=== PATIENT | female | born 1960 | race African-American/Black ===

== ENCOUNTER 2016-09-19 14:10 | Emergency (ER) | payer MEDICARE, OTHER ==
[~2016-09-19] VITALS: Ht 170.2 cm; Wt 96.6 kg
[~2016-09-19 14:10] MED LIST: AMLO10TA2 PO; AMLO10TA4; ATOR40TA PO; CARV3.12 PO; CLOP75TA27 PO; FENO145T PO; FERR325T58 PO; GLIM4TAB2 PO; HYDR12.58 PO; LEVE500T56 PO; LISI20TA PO; LORA10TA55 PO; METF500T4 PO; OXYC1TAB9 PO; SOLI5TAB PO; TRAM50TA PO; TRIA15CR3 TP
--- NOTE | 2016-09-19 14:47 | RAD ---
EXAM: Chest 2 views. HISTORY: Cough, shortness of breath, weakness. COMPARISON: 03/09/2016. FINDINGS: Frontal and lateral views of the chest are obtained. There are no confluent infiltrates. There is no pneumothorax or pleural effusion. The heart is not enlarged. A large retrocardiac opacity is consistent with a large hiatal hernia seen on prior studies. There is mild adjacent atelectasis. There are atherosclerotic calcifications of the aorta. Cholecystectomy clips are noted. IMPRESSION: 1. Large hiatal hernia. No confluent infiltrates.
[2016-09-19 15:15] VITALS: BP 121/68
[2016-09-19] MEDS ORDERED: AZIT250T PO (15:15)
[2016-09-19] MEDS ORDERED: GUAI-56 PO (15:15)
[2016-09-19] MEDS ORDERED: PROAIR RESPICL90 MCG IH (15:15)
[2016-09-19] MEDS ORDERED: BENZ100C PO (15:15)
--- NOTE | 2016-09-19 15:15 | PHYS DOC ---
Past Medical History Past Medical History: COPD, CVA, Diabetes-Type II, Hypertension Additional Past Medical Histor: Sickle cell trait, hiatal hernia Past Surgical History: Cholecystectomy, Hysterectomy, Tubal ligation Additional Past Surgical Histo: carotid endarterectomy Alcohol Use: Occasionally Drug Use: None Adult General Chief Complaint Chief Complaint: COUGH HPI HPI Patient is a 55 year old female with history of hypertension diabetes and COPD who presents today with a productive cough with yellow sputum for the last 4 days. Patient denies any fever. Patient states she is a smoker Review of Systems Review of Systems Constitutional: Denies fever or chills [] Eyes: Denies change in visual acuity, redness, or eye pain [] HENT: Denies nasal congestion or sore throat [] Respiratory: cough Cardiovascular: No additional information not addressed in HPI [] GI: Denies abdominal pain, nausea, vomiting, bloody stools or diarrhea [] : Denies dysuria or hematuria [] Musculoskeletal: Denies back pain or joint pain [] Integument: Denies rash or skin lesions [] Neurologic: Denies headache, focal weakness or sensory changes [] Endocrine: Denies polyuria or polydipsia [] Allergies Allergies Allergies Coded Allergies Type Severity Reaction Last Updated Verified aspirin Allergy Intermediate Itching 03/09/16 Yes meloxicam Allergy Intermediate 03/09/16 Yes strawberry Allergy Intermediate Itching 03/09/16 Yes Physical Exam Physical Exam Constitutional: Well developed, well nourished, no acute distress, non-toxic appearance. [] HENT: Normocephalic, atraumatic, bilateral external ears normal, oropharynx moist, no oral exudates, nose normal. [] Eyes: PERRLA, EOMI, conjunctiva normal, no discharge. [] Neck: Normal range of motion, no tenderness, supple, no stridor. [] Cardiovascular:Heart rate regular rhythm, no murmur [] Lungs & Thorax: Bilateral breath sounds clear to auscultation [] Abdomen: Bowel sounds normal, soft, no tenderness, no masses, no pulsatile masses. [] Skin: Warm, dry, no erythema, no rash. [] Back: No tenderness, no CVA tenderness. [] Extremities: No tenderness, no cyanosis, no clubbing, ROM intact, no edema. [] Neurologic: Alert and oriented X 3, normal motor function, normal sensory function, no focal deficits noted. [] Psychologic: Affect normal, judgement normal, mood normal. [] Current Patient Data Vital Signs Vital Signs Date Time Temp Pulse Resp B/P Pulse Ox O2 Delivery O2 Flow Rate FiO2 09/19/16 14:23 99.0 97 18 95 Room Air 99.0 EKG EKG [] Radiology/Procedures Radiology/Procedures [] Course & Med Decision Making Course & Med Decision Making Pertinent Labs and Imaging studies reviewed. (See chart for details) Patient is in the ED with symptoms consistent of bronchitis. She is encouraged to consider smoking cessation. Discharged with zithromax, albuterol inhaler Tessalon Perles and Tussionex. Follow-up with PCP in one week. Dragon Disclaimer Dragon Disclaimer This electronic medical record was generated, in whole or in part, using a voice recognition dictation system. Departure Departure Impression: Primary Impression: Acute bronchitis Additional Impression: Smoking addiction Disposition: HOME, SELF-CARE Condition: STABLE Referrals: Adriano JOVEL MD (PCP) Follow-up with your doctor in the next 7 days Patient Instructions: Acute Bronchitis, [id number] Additional Instructions: You were seen for acute bronchitis. Please complete your antibiotics, consider smoking cessation. Use the rest of the medications as ordered. Follow-up with your doctor next wee. Come back to the ED at any point symptoms worsen. Scripts Guaifenesin/Codeine Phosphate (Guiatuss Ac Syrup)120 Ml [id number] Ml PO Q6-8HRS PRN COUGH #90 LIQUID Prov:YOUNG BROOKE [employer] 09/19/16 Benzonatate (Tessalon Perle)100 Mg Capsule1 Cap PO TID #30 CAP Prov:YOUNG BROOKE [employer] 09/19/16 Albuterol Sulfate (Proair Respiclick)90 Mcg Aer.pow.ba1 Puff IH PRN Q6HRS PRN SHORTNESS OF BREATH #1 INHALER Prov:YOUNG BROOKE APRN 09/19/16 Azithromycin (Zithromax)250 Mg Tablet1 Pkg PO UD #1 PKG Prov:YOUNG BROOKE [employer] 09/19/16 Problem Qualifiers Primary Impression: Acute bronchitis Bronchitis organism: unspecified organism Qualified Code: J20.9 - Acute bronchitis, unspecified YOUNG BROOKE [employer] Sep 19, 2016 15:15
== END 2016-09-19 15:21 | disposition home or self-care (01) ==
LOC: ER 14:10
DX: J20.9 Acute bronchitis, unspecified (principal); F17.200 Nicotine dependence, unspecified, uncomplicated; J44.9 Chronic obstructive pulmonary disease, unspecified; E11.9 Type 2 diabetes mellitus without complications; I10 Essential (primary) hypertension; Z86.73 Personal history of transient ischemic attack (TIA), and cerebral infarction without residual deficits; Z86.2 Personal history of diseases of the blood and blood-forming organs and certain disorders involving the immune mechanism; Z90.710 Acquired absence of both cervix and uterus; Z90.49 Acquired absence of other specified parts of digestive tract; Z98.51 Tubal ligation status; Z88.6 Allergy status to analgesic agent; Z91.018 Allergy to other foods; Z88.8 Allergy status to other drugs, medicaments and biological substances
CPT/HCPCS: 71020; 99284

== ENCOUNTER 2017-02-10 13:59 | Emergency (ER) | payer MEDICARE, OTHER ==
[~2017-02-10] VITALS: Ht 170.2 cm; Wt 97.5 kg
[~2017-02-10 13:59] MED LIST changes: +AZIT250T PO; +BENZ100C PO; -CLOP75TA27 PO; +CLOP75TA57 PO; +GUAI-56 PO; +PROAIR RESPICL90 MCG IH; -SOLI5TAB PO; +SOLI5TAB2 PO
[2017-02-10 14:10] VITALS: BP 140/74
[2017-02-10] MEDS ORDERED: HYDROcodone/APAP 5/325MG 1 TAB TABLET PO ONE (14:45)
--- NOTE | 2017-02-10 14:49 | PHYS DOC ---
Past Medical History Past Medical History: COPD, CVA, Diabetes-Type II, Hypertension Additional Past Medical Histor: Sickle cell trait, hiatal hernia Past Surgical History: Cholecystectomy, Hysterectomy, Tubal ligation Additional Past Surgical Histo: carotid endarterectomy, left wrist, carpal tunnel Alcohol Use: Occasionally Drug Use: None Adult General Chief Complaint Chief Complaint: PAIN CONTROL [facility] HPI Patient is a 56 year old female presents to the emergency department stating that she had surgery on the by Dr. Kevin Natarajan. Patient states that she was provided with oxycodone 5 mg. She states that she has out of her prescription. She did have oxycodone filled on 02/05 with 40 tablets that should've lasted her for 6 days however she has one day early of getting her medications completed. His also noted that she had Dilaudid 8 mg tablets filled on 02/08 and a total of 40 to last her for 7 days in which she should still have Dilaudid at home. Patient states that she's been having increased pain and discomfort in her left arm where she had surgery. She denies any numbness or tingling into the hands. She denies any drainage or discharge coming from the surgical site. Patient states that her family member changes the dressing. She denies any fever, chills or any nausea or vomiting. Review of Systems Review of Systems Constitutional: Denies fever or chills [] Eyes: Denies change in visual acuity, redness, or eye pain [] HENT: Denies nasal congestion or sore throat [] Respiratory: Denies cough or shortness of breath [] Cardiovascular: No additional information not addressed in HPI [] GI: Denies abdominal pain, nausea, vomiting, bloody stools or diarrhea [] : Denies dysuria or hematuria [] Musculoskeletal: Denies back pain. Complaint of left forearm pain and discomfort from her surgical site. Integument: Denies rash or skin lesions [] Neurologic: Denies headache, focal weakness or sensory changes [] Endocrine: Denies polyuria or polydipsia [] Current Medications Current Medications Current Medications Medications (Trade) Dose Ordered Sig/Chuck Start Time Stop Time Status Last Admin Dose Admin Acetaminophen/ Hydrocodone Bitart (Lortab 5/325) 2 tab 1X ONCE 02/10/17 14:45 02/10/17 14:46 UNV Allergies Allergies Allergies Coded Allergies Type Severity Reaction Last Updated Verified aspirin Allergy Intermediate Itching 03/09/16 Yes meloxicam Allergy Intermediate 03/09/16 Yes strawberry Allergy Intermediate Itching 03/09/16 Yes Physical Exam Physical Exam Constitutional: Well developed, well nourished, no acute distress, non-toxic appearance. [] HENT: Normocephalic, atraumatic, bilateral external ears normal, oropharynx moist, no oral exudates, nose normal. [] Eyes: PERRLA, EOMI, conjunctiva normal, no discharge. [] Neck: Normal range of motion, no tenderness, supple, no stridor. [] Cardiovascular:Heart rate regular rhythm, no murmur [] Lungs & Thorax: Bilateral breath sounds clear to auscultation [] Skin: Warm, dry, no erythema, no rash. Patient with a surgical incision on the left medial aspect of the distal forearm. This area appears to be without redness warmth or drainage or any tenderness. Sutures appear to be intact. Edges appear to be approximated well. Back: No tenderness Extremities: No tenderness, no cyanosis, no clubbing, ROM intact, no edema. Patient was noted to have a splint in place. Peripheral pulses 2+ cap refill brisk is less than 2 seconds. Patient has good sensation to the fingers and is able to move the fingers without difficulty. Neurologic: Alert and oriented X 3, normal motor function, normal sensory function, no focal deficits noted. [] Psychologic: Affect normal, judgement normal, mood normal. [] Current Patient Data Vital Signs Vital Signs Date Time Temp Pulse Resp B/P (MAP) Pulse Ox O2 Delivery O2 Flow Rate FiO2 02/10/17 14:10 98.8 98 16 97 Room Air 98.8 EKG EKG [] Radiology/Procedures Radiology/Procedures [] Course & Med Decision Making Course & Med Decision Making Pertinent Labs and Imaging studies reviewed. (See chart for details) Patient will be provided with hydrocodone here in the emergency department. She' ll be provided with 2 tablets. She will not be provided with a prescription to take at home as she has Dilaudid at home. She did have a Dilaudid prescription filled on 02/08 with 40 tablets to last for 7 days. This should suffice her enough to get through until Sunday to see her surgeon. Patient will be discharged home in stable condition signs symptoms to return back to emergency department as been provided. Recommended patient use ice packs on 20 minutes off 20 minutes several times a day. Elevation as much as possible. Patient agrees with discharge instructions, treatment regimens and follow-up recommendations. [] Dragon Disclaimer Dragon Disclaimer This electronic medical record was generated, in whole or in part, using a voice recognition dictation system. Departure Departure Impression: Primary Impression: Inadequate pain control Disposition: HOME, SELF-CARE Condition: STABLE Referrals: Adriano JOVEL MD (PCP) Patient Instructions: Sutured Wound Care, Rbni-it-Vnat, Wrist Pain, Easy-to- Read Additional Instructions: Continue to wear splint as prescribed by your surgeon. Continue the medication regimen of your primary care physician or your surgeon has provided you. Ice packs on 20 minutes off 20 minutes several times a day. Elevation as much as possible. Follow-up with your surgeon on Sunday in which she state you have an appointment. Return to the emergency department for signs symptoms of become worse. TANNER DUCKWORTH APRN Feb 10, 2017 14:49
== END 2017-02-10 15:15 | disposition home or self-care (01) ==
LOC: ER 13:59
DX: G89.18 Other acute postprocedural pain (principal); E11.9 Type 2 diabetes mellitus without complications; J44.9 Chronic obstructive pulmonary disease, unspecified; I10 Essential (primary) hypertension; Z86.73 Personal history of transient ischemic attack (TIA), and cerebral infarction without residual deficits; Z98.890 Other specified postprocedural states; Z88.6 Allergy status to analgesic agent; Z91.018 Allergy to other foods; Z91.048 Other nonmedicinal substance allergy status; G56.00 Carpal tunnel syndrome, unspecified upper limb
CPT/HCPCS: 99282

== ENCOUNTER → 2018-02-26 | Outpatient (CLI) | payer MEDICARE, OTHER ==
[2018-01-23 12:57] VITALS: BP 187/81
[~2018-02-26] MED LIST changes: -METF500T4 PO; +METF500T5 PO; +METH-37 PO; +METH4TAB2 PO; +OXYC-411 PO; -OXYC1TAB9 PO; +TRAM-48 PO
--- NOTE | 2018-02-26 17:47 | RAD ---
EXAM: Metastatic Survey DATE: 02/26/2018 12:00 AM CLINICAL INDICATION: MGUS,monocional gammopathy of unknown signifance, pt extremely tired x 2 years COMPARISON: Chest radiograph 09/19/2016 TECHNIQUE: Survey images of the skull, axial skeleton, pelvis and appendicular skeleton submitted. PA view of the chest also submitted. FINDINGS: AP and lateral views of the skull are negative for focal lytic or blastic abnormality. Negative for acute fracture or sutural diastasis. Survey of the axial skeletal shows mild degenerative changes of the cervical and lumbar spine. Negative malalignment. Negative focal lytic or blastic abnormality. Negative compression fracture. Preserved bone density at the axial skeleton. AP view of the pelvis is negative for focal lytic or blastic abnormality Preserved bone density at the pelvis. Negative pathologic fracture. Hip joint spaces are preserved bilaterally. Survey of the appendicular skeleton is negative for focal lytic or blastic abnormality, or endosteal scalloping. Negative pathologic fracture. Bone density is preserved throughout. Degenerative change is seen at the knees. PA chest exam is negative for consolidation or edema. Cardiac silhouette size is mildly enlarged. Negative expansile rib lesion. Negative lytic or blastic abnormality of the visualized marginal bony skeleton. IMPRESSION: 1. Negative metastatic survey for findings of skeletal involvement with multiple myeloma. No suspicious lytic lesion is identified. Electronically signed by: Colten Nelson MD (02/26/2018 5:43 PM) [facility]
== END | disposition home or self-care (01) ==
LOC: RAD 12:09
PROVIDERS: ATTEND Internal Medicine Hematology & Oncology
DX: D47.2 Monoclonal gammopathy (principal); I12.9 Hypertensive chronic kidney disease with stage 1 through stage 4 chronic kidney disease, or unspecified chronic kidney disease; E11.22 Type 2 diabetes mellitus with diabetic chronic kidney disease; N18.9 Chronic kidney disease, unspecified; E78.00 Pure hypercholesterolemia, unspecified; M19.90 Unspecified osteoarthritis, unspecified site; J44.9 Chronic obstructive pulmonary disease, unspecified; K21.9 Gastro-esophageal reflux disease without esophagitis; Z87.891 Personal history of nicotine dependence
CPT/HCPCS: 77075

== ENCOUNTER → 2018-05-20 | Outpatient (CLI) | payer MEDICARE, OTHER ==
[2018-01-23 12:57] VITALS: BP 187/81
[~2018-05-20] MED LIST changes: -AMLO10TA2 PO; +AMLO10TA6 PO; +METF500T16 PO; -METF500T5 PO
--- NOTE | 2018-05-20 16:30 | RAD ---
DATE: 05/20/2018 EXAM: MAMMO BORA SCREENING BILATERAL HISTORY: Routine screening COMPARISON: 04/03/2012 This study was interpreted with the benefit of Computerized Aided Detection (CAD). Breast Density: FATTY The breast parenchyma is primarily fatty replaced. Breast parenchyma level density A. FINDINGS: 2-D and 3-D tomosynthesis imaging was performed in CC and MLO projections. No new or enlarging breast densities seen within either breast. There are scattered benign type calcifications. No suspicious microcalcifications have developed. There is a new focal area of skin thickening present along the inferomedial aspect of the left breast posteriorly. No underlying mass within the breast is seen. IMPRESSION: 1. Inferiomedial skin thickening on the left without evidence of an underlying breast mass. Skin related infection, inflammation or even malignancy are possibilities. Clinical correlation is suggested. 2. In regards to the breasts, this study is considered to be BI-RADS 2-benign findings, with follow-up mammography in one year suggested. The skin finding should be dealt with on clinical grounds. PQRS compliance statement: Patient information was entered into a reminder system with a target due date for the next mammogram. Mammography is a sensitive method for finding small breast cancers, but it does not detect them all and is not a substitute for careful clinical examination. A negative mammogram does not negate a clinically suspicious finding and should not result in delay in biopsying a clinically suspicious abnormality. "Our facility is accredited by the [employer] Mammography Program."
== END | disposition home or self-care (01) ==
LOC: MAMMO 14:24
PROVIDERS: ATTEND Family Medicine
DX: Z12.31 Encounter for screening mammogram for malignant neoplasm of breast (principal)
CPT/HCPCS: 77063; 77067

== ENCOUNTER → 2018-06-13 | Outpatient (CLI) | payer OTHER ==
[2018-01-23 12:57] VITALS: BP 187/81
--- NOTE | 2018-06-18 17:08 | PATHOLOGY ---
[facility] Accession Number: [id number] . 01 Material submitted: . PLANTAR, R FOOT . 01 Clinical history: . Evaluation punch biopsy skin lesion for malignancy . 02 Diagnosis: Skin, right plantar foot punch biopsy: - Squamous hyperplasia with marked hyperkeratosis. (JPM:joe; 06/18/2018) QMS/06/18/2018 . 02 Comment: There is no atypia or evidence of malignancy. . 02 Electronically signed: . Gen Molina MD, Pathologist NPI- [id number] . 01 Gross description: . The specimen is received in formalin, labeled "Aleea Brown, lesion plantar right foot" and consists of 2 bravo-grover skin punches measuring 0.3 x 0.3 x 0.4 cm and 0.3 x 0.3 x 0.3 cm. One is inked black and they are submitted intact in A1. (SDY; 06/14/2018) SYU/SYU . 02 Pathologist provided ICD-10: L85.8 . 02 CPT . 561930 Specimen Comment: A courtesy copy of this report has been sent to Specimen Comment: [phone], . Specimen Comment: Report sent to / DR JOVEL Performed at: 01 [facility] [address], [place] [id number] MD Geoffrey Mueller MD Phone: [phone] Performed at: 02 [facility] [place] [address] [place], [place] [id number] MD Gen Molina MD Phone: [phone]
== END | disposition home or self-care (01) ==
LOC: SPEC 17:30
PROVIDERS: ATTEND Podiatrist Foot & Ankle Surgery
DX: D16.31 Benign neoplasm of short bones of right lower limb (principal)
CPT/HCPCS: 88305

== ENCOUNTER → 2019-09-17 | Outpatient (CLI) | payer OTHER, MEDICAID ==
[2018-01-23 12:57] VITALS: BP 187/81
[~2019-09-17] MED LIST changes: -AMLO10TA6 PO; +AMLO10TA8 PO; -GLIM4TAB2 PO; +GLIM4TAB8 PO
--- NOTE | 2019-09-18 13:27 | RAD ---
History: Routine Screening. Technique: Bilateral digital mammographic routine views were obtained with 2-D and 3-D technique including use of CAD - computer aided detection. Comparison: 05/20/2018. Findings: Breast Tissue Density A : The breast tissue is predominately fatty replaced. There are no suspicious masses, microcalcifications or areas of architectural distortion. Impression: Negative mammogram. BI-RADS Category 1: Negative. Normal interval followup. . A mammogram does not have 100% sensitivity and therefore a negative imaging study should not delay further work up of a suspicious abnormality. The patient will receive a letter with the results in the mail. Patient information is entered into the reminder system with a target due date for the next screening mammogram. The patient will receive a reminder. "Our facility is accredited by the [employer] Mammography Program." BI-RADS 1 -- negative findings (within normal)
== END ==
LOC: MAMMO 12:40
PROVIDERS: ATTEND Family Medicine
DX: Z12.31 Encounter for screening mammogram for malignant neoplasm of breast (principal)
CPT/HCPCS: 77067

== ENCOUNTER → 2020-03-09 | Outpatient (CLI) | payer MEDICARE, MEDICAID ==
[~2020-03-09] VITALS: Ht 170.2 cm; Wt 95.3 kg
[2020-03-09] VITALS (7 sets, daily range): BP systolic 121–141; BP diastolic 71–73
[~2020-03-09] MED LIST changes: +FERRIC CARBOXYMALTOSE 750 MG in IV NORMAL SALINE 250ML 250 ML IV ONE; -OXYC-411 PO; +OXYC1TAB20 PO
[2020-03-09 08:41] LABS: HEMATOCRIT 26.6 % (36.0-47.0); HEMOGLOBIN 7.4 g/dL (12.0-15.5)
== END | disposition home or self-care (01) ==
LOC: OPS 08:08
PROVIDERS: ATTEND Family Medicine
DX: D64.9 Anemia, unspecified (principal)
CPT/HCPCS: 36415; 36430; 85014; 85018; 86850; 86870; 86900; 86901; 86922; 96365; J1439; J7050; P9016; J7030

== ENCOUNTER 2020-05-14 11:38 | Emergency (ER) | payer OTHER, MEDICAID ==
[~2020-05-14] VITALS: Ht 170.2 cm; Wt 90.9 kg
[~2020-05-14 11:38] MED LIST changes: +AMLO-187 PO; -AMLO10TA8 PO; -FERRIC CARBOXYMALTOSE 750 MG in IV NORMAL SALINE 250ML 250 ML IV ONE
--- NOTE | 2020-05-14 12:26 | ED.ADGEN ---
Past Medical History Past Medical History: Anemia, Arthritis, COPD, CVA, Diabetes-Type II, Hyp ertension Additional Past Medical Histor: Sickle cell trait, hiatal hernia Past Surgical History: Cholecystectomy, Hysterectomy, Tubal ligation Additional Past Surgical Histo: carotid endarterectomy, left wrist, carpal tunnel Smoking Status: Current Every Day Smoker Alcohol Use: Occasionally Drug Use: None General Adult EDM: Chief Complaint: COUGH HPI: HPI: Patient is a 59 year old AA female who presented to the emergency room with complaints of a productive cough with thick yellow sputum, nasal congestion, body aches, and fatigue that began 1 week ago. Patient denies any chest pain, palpitations, vomiting, diarrhea, abdominal pain, ear pain, sore throat, or headache. She states that she has had some nausea. She denies any known exposure to COVID-19. Patient reports that she does smoke less than a pack of cigarettes a day but due to the cough and shortness of breath she has not been smoking as much. She currently denies any pain. Review of Systems: Review of Systems: Complete ROS is negative unless otherwise noted in HPI. Current Medications: Current Medications Medications (Trade) Dose Ordered Sig/Chuck Start Time Stop Time Status Last Admin Dose Admin Acetaminophen (Tylenol) 1,000 mg 1X ONCE 05/14/20 13:00 05/14/20 13:01 DC 05/14/20 13:25 1,000 MG Allergies: Allergies: Allergies Coded Allergies Type Severity Reaction Last Updated Verified aspirin Allergy Intermediate Itching 03/09/20 Yes meloxicam Allergy Intermediate 03/09/20 Yes strawberry Allergy Intermediate Itching 03/09/20 Yes Physical Exam: PE: See Above Constitutional: Well developed, well nourished, no acute distress,ill appearance. [] HENT: Normocephalic, atraumatic, bilateral external ears normal, posterior pharynx normal, oropharynx moist, no oral exudates, nose congested bilaterally with clear drainage Eyes: PERRLA, EOMI, conjunctiva normal, no discharge. [] Neck: Normal range of motion, no stridor. [] Cardiovascular:Heart rate regular rhythm Lungs & Thorax: Respirations even and unlabored, no retractions, no respiratory distress Skin: Warm, dry, no erythema, no rash. [] Extremities: No cyanosis, no clubbing, ROM intact, no edema. [] Neurologic: Alert and oriented X 3, normal motor function, normal sensory function, no focal deficits noted. [] Psychologic: Affect normal, judgement normal, mood normal. [] Current Patient Data: Labs: Laboratory Tests Test 05/14/20 12:15 Influenza Type A Antigen Negative (NEGATIVE) Influenza Type B Antigen Negative (NEGATIVE) Vital Signs: Vital Signs Date Time Temp Pulse Resp B/P (MAP) Pulse Ox O2 Delivery O2 Flow Rate FiO2 05/14/20 13:33 90 16 153/87 (109) 100 Room Air 05/14/20 12:06 98.3 98.3 EKG: EKG: [] Heart Score: Risk Factors: Risk Factors: DM, Current or recent (<one month) smoker, HTN, HLP, family history of CAD, obesity. Risk Scores: Score 0 - 3: 2.5% MACE over next 6 weeks - Discharge Home Score 4 - 6: 20.3% MACE over next 6 weeks - Admit for Clinical Observation Score 7 - 10: 72.7% MACE over next 6 weeks - Early Invasive Strategies Radiology/Procedures: Radiology/Procedures: PROCEDURE: CHEST AP ONLY EXAM: Chest, single view. HISTORY: Nausea, vomiting and diarrhea. COMPARISON: 09/19/2016 FINDINGS: A frontal view of the chest is obtained. There is mild diffuse increased interstitial opacity. There is no consolidation, pleural effusion or pneumothorax. There is an enlarged cardiac silhouette. There is a hiatal hernia. IMPRESSION: 1. Mild diffuse increased interstitial opacity. This may be due to interstitial infiltrate. No consolidation is seen. 2. Prominent cardiac silhouette, a component of which is accentuated due to a hiatal hernia.[] Course & Med Decision Making: Course & Med Decision Making Pertinent Labs and Imaging studies reviewed. (See chart for details) 59-year-old female presents emergency room with complaints of a productive cough for the last week and body aches. Rapid testing was negative, her COVID-19 swab is pending. Chest x-ray revealed no acute findings. The patient's vital signs are stable throughout her ER visit her sat remained 98 to 99% on room air and her breathing was unlabored. Prescription was written for Zithromax. Patient was given 1 g of Tylenol in the department for her body aches. Patient was provided with quarantine instructions and encouraged to return to the emergency room if her symptoms or shortness of breath worsen. Patient verbalized an understanding of home care, medications, follow-up, and return to ED instructions and was in agreement with the plan of care. [] Kaylene Disclaimer: Kaylene Disclaimer: This electronic medical record was generated, in whole or in part, using a voice recognition dictation system. Departure Departure Impression: Primary Impression: Acute bronchitis Additional Impression: Person under investigation for COVID-19 Disposition: 01 DC HOME SELF CARE/HOMELESS Condition: STABLE Referrals: Adriano JOVEL MD (PCP) Patient Instructions: Acute Bronchitis, [id number] Additional Instructions: Fill prescription(s) and use as directed. Alternate Tylenol or ibuprofen as needed for pain/fever. Increase clear fluids. Avoid airway triggers such as smoke, fragrance, dust, and pollen. May take [id number] cough suppressants as needed. Follow the following COVID-19 quarantine instructions. Return to the ER if symptoms worsen. You have been tested for or diagnosed with COVID-19. It is an infection caused by a new type of coronavirus. COVID-19 will cause cold-like or mild flu symptoms in most. It can cause more severe symptoms like problems breathing in some. There is no treatment for COVID-19. The body will clear the infection over time. Self-care will help to ease discomfort. Steps to Take: Self-Care Rest as needed. Healthy habits may help you feel better. Steps include: Choose healthy foods including fruits and vegetables. Drink water throughout the day. Get plenty of sleep each night. If you smoke, try to quit. It may ease breathing. Avoid alcohol. Keep Others Healthy The virus can spread to others. Droplets are released every time you sneeze or cough. The droplets can get into the mouth, nose, or eyes of people near you and lead to infection. To lower the chances of spreading COVID-19 to others: Stay at home until your doctor has said it is safe to leave. If you tested positive this will mean staying isolated until both of the following are true: At least 7 days have passed since the start of illness. You are free of fever for at least 72 hours without the use of medicine. During this time: - Avoid public areas, events, or transportation. Do not return to work or school until your doctor has said it is safe to do so. - Call ahead if you need to go to a medical center. Let them know you may have COVID-19. It will help them guide you where to go. They may also ask you to wear a facemask when you come to the office. - If you call for emergency medical services, let them know you may have COVID- 19. While at home: - Try to avoid close contact with others. Stay about 6 feet away. - If possible, spend most of your time in a separate room from others. - Use a face mask if you will be in close contact with others such as sharing a room or vehicle. - Have someone wipe down common surfaces in the home. Use household external grinder tool every day on areas like doorknobs, counters, or sinks. - Cough or sneeze into a tissue. Throw the tissue away right after use. If a tissue is not available, cough or sneeze into your elbow. - Wash your hands often. Wash them after sneezing or coughing. Use soap and water and wash for at least 20 seconds. Alcohol based hand diamond cleaner can be used if soap and water is not available. - Do not prepare food for others. Avoid sharing personal items like forks, spoons, or toothbrushes. - Avoid close contact with pets while you are sick. There is no evidence of the virus passing to pets. This is a safety step until more is known about this virus. Isolation can be frustrating. Social interaction can help. Keep in touch with friends and family through phone and tech options. You can still interact with others in your home, just keep a safe distance of about 6 feet. Follow-up: Your doctors office will check in with you to see if there are any changes in your health. You may be asked to keep track of symptoms to share with them. They will also let you know when you are clear to be in public again. Problems to Look Out For: Contact your doctor if your recovery is not going as you expect. Get emergency care if you have problems such as: - Trouble breathing - Nonstop chest pain or pressure - Changes in awareness, confusion, or problems waking - Lips or face have bluish color - Worsening of symptoms If you think you have an emergency, call for emergency medical services right away. As taken from [facility] Azithromycin (AZITHROMYCIN TABLET) 250 Mg Tablet 1 PKG PO UD for 5 Days, #6 TAB 0 Refills 2 the first day followed by 1 for days 2-5 Prov: FRANCISCO [employer]YA [employer] 05/14/20 Problem Qualifiers Primary Impression: Acute bronchitis Bronchitis organism: unspecified organism Qualified Codes: J20.9 - Acute bronchitis, unspecified FRANCISCO [employer] May 14, 2020 12:26
--- NOTE | 2020-05-14 12:31 | RAD ---
EXAM: Chest, single view. HISTORY: Nausea, vomiting and diarrhea. COMPARISON: 09/19/2016 FINDINGS: A frontal view of the chest is obtained. There is mild diffuse increased interstitial opacity. There is no consolidation, pleural effusion or pneumothorax. There is an enlarged cardiac silhouette. There is a hiatal hernia. IMPRESSION: 1. Mild diffuse increased interstitial opacity. This may be due to interstitial infiltrate. No consolidation is seen. 2. Prominent cardiac silhouette, a component of which is accentuated due to a hiatal hernia. Electronically signed by: Nasrin Villarreal MD (05/14/2020 12:28 PM) [id number]
[2020-05-14] MEDS ORDERED: ACETAMINOPHEN 500 MG TABLET PO ONE (13:00)
[2020-05-14 13:02] LABS: INFLUENZA A PATIENT NEGATIVE (NEGATIVE); INFLUENZA B PATIENT NEGATIVE (NEGATIVE)
[2020-05-14] MEDS ORDERED: AZIT250T6 PO ×2 (13:29→13:33)
[2020-05-14 13:33] VITALS: BP 153/87
== END 2020-05-14 13:44 | disposition home or self-care (01) ==
LOC: ER 11:38
DX: J20.9 Acute bronchitis, unspecified (principal); Z20.828 Contact with and (suspected) exposure to other viral communicable diseases; R09.81 Nasal congestion; R53.83 Other fatigue; R05 Cough; R06.02 Shortness of breath; M19.90 Unspecified osteoarthritis, unspecified site; J44.9 Chronic obstructive pulmonary disease, unspecified; E11.9 Type 2 diabetes mellitus without complications; I10 Essential (primary) hypertension; F17.200 Nicotine dependence, unspecified, uncomplicated; Z90.49 Acquired absence of other specified parts of digestive tract; Z90.710 Acquired absence of both cervix and uterus; Z98.51 Tubal ligation status; Z98.890 Other specified postprocedural states; Z88.8 Allergy status to other drugs, medicaments and biological substances; Z91.018 Allergy to other foods
CPT/HCPCS: 71045; 87804; 99284; C9803; U0003

== ENCOUNTER 2021-01-06 14:14 | Emergency (ER) | payer OTHER, MEDICAID ==
[~2021-01-06] VITALS: Ht 170.2 cm; Wt 94.0 kg
[~2021-01-06 14:14] MED LIST changes: +AZIT250T6 PO; +LORA-169 PO; -LORA10TA55 PO
--- NOTE | 2021-01-06 18:08 | PHYS DOC ---
Past Medical History Past Medical History: Anemia, Arthritis, COPD, CVA, Diabetes-Type II, Hyp ertension Additional Past Medical Histor: Sickle cell trait, hiatal hernia Past Surgical History: Cholecystectomy, Hysterectomy, Tubal ligation Additional Past Surgical Histo: carotid endarterectomy, left wrist, carpal tunnel Smoking Status: Current Every Day Smoker Alcohol Use: Occasionally Drug Use: None General Adult EDM: Chief Complaint: SHORTNESS OF BREATH HPI: HPI: Patient is a 60 year old male with history of diabetes, hypertension, hyperlipidemia presents emergency department for cough. Patient reports a productive cough with yellow sputum for the past 4 to 5 days. She reports the cough is worse at night. She has had some sinus congestion. Patient reports Covid infection early in November. Covid infection was just after she had gotten the first vaccine. She did receive her second vaccination on December 03, 2020. Patient denies any chest pain or shortness of breath. She has had pneumonia in the past. She has had no fevers. Now she has had intermittent episodes of nausea and vomiting but this is not new. No diarrhea constipation. Patient is an everyday smoker. Denies drugs or alcohol. Does report that she is compliant on her diabetic medications. She does take insulin and oral antihyperglycemics, patient reports that she just moved and she is still looking for her glucometer. Review of Systems: Review of Systems: Review of Systems: Constitutional: Denies fever or chills Eyes: Denies redness or eye pain HENT: Denies sore throat Respiratory: Positive cough or shortness of breath Cardiovascular: Denies chest pain or palpitations GI: denies abdominal pain and nausea, denies vomiting or diarrhea : Denies dysuria or hematuria Musculoskeletal: Denies back pain or joint pain Integument: Denies rash or skin lesions Neurologic: Denies headache, focal weakness or sensory changes Heart Score: C/O Chest Pain: No Allergies: Allergies: Allergies Coded Allergies Type Severity Reaction Last Updated Verified aspirin Allergy Intermediate Itching 05/31/20 Yes meloxicam Allergy Intermediate 05/31/20 Yes strawberry Allergy Intermediate Itching 05/31/20 Yes Physical Exam: PE: *GENERAL APPEARANCE: Awake and alert. Cooperative. No acute distress. Non toxic appearing. HEAD: Normocephalic. Atraumatic. EYES: EOM's grossly intact. Sclera anicteric. Conjunctiva clear ENT:. Airway patent. Mucous membranes moist. No trismus. Tolerating secretions. Normal oropharynx. No erythema edema or exudates. NECK: Supple. Trachea midline. HEART: Regular rate and rhythm. Radial pulses 2+. Good capillary refill. LUNGS: Respirations unlabored. Clear to auscultation bilaterally. No rales, rhonchi, wheezing or retractions. ABDOMEN: Soft. Non-tender. No guarding or rebound. No CVA tenderness. No palpable or pulsatile mass. EXTREMITIES: No acute deformities. No edema, erythema or calf tenderness. SKIN: Warm and dry. No rash. NEUROLOGICAL: Alert and oriented x3. No gross neurological deficits. Moves all 4 extremities spontaneously. PSYCHIATRIC: Normal mood. EKG: EKG: EKG interpretation 1820 shows sinus rhythm with ventricular rate of 90 bpm. VA interval 160 ms. QRS duration is 74 ms. QTc 436 ms. Compared to previous EKG on March 09, 2016 that appears similar. Repeat EKG at 1938 shows sinus rhythm ventricular rate of 94 bpm. VA interval 170 ms. QRS 68 ms. QTc 441 ms. No changes from previous EKG Radiology/Procedures: Radiology/Procedures: []PATIENT: JACLYN SOTO VACCOUNT: [id number]#: [id number] : 1960 LOCATION: ER AGE: 60 SEX: F EXAM STATUS: REG ER ORD. PHYSICIAN: BONNIE HERNANDEZ DO REASON: cough PROCEDURE: CHEST PA & LATERAL XR CHEST 2V History: Reason: cough / Spl. Instructions: / History: Comparison: May 14, 2020 Findings: No consolidation or pleural effusion. Enlarged cardiac size, unchanged. No pneumothorax. Large hiatal hernia. Impression: 1. No acute cardiopulmonary process. 2. Large hiatal hernia. Electronically signed by: Mathew Natarajan DO (01/06/2021 6:55 PM) [facility] DICTATED and SIGNED BY: MATHEW NATARAJAN DO DATE: 01/06/21 [id number] Course & Med Decision Making: Course & Med Decision Making Medical decision making: This is a 60-year-old female presents emergency department for cough congestion shortness of breath. In the emergency department patient appears no acute distress. She is hypertensive. She is 98% on room air. No respiratory distress. Lungs are clear. She coughs with taking deep breaths. Blood pressure was 163/101. Did improve to 152/80. Patient does take blood pressure medication. She has no leukocytosis. Glucose 313. Patient is not diabetic ketoacidosis. Troponin negative. Chest x-ray shows no acute cardiopulmonary process. On repeat evaluation patient is resting comfortably. No acute respiratory distress. I did have lengthy discussion with patient about symptoms and findings. Patient does not want to stay in the emergency department any longer nor did she went to be admitted to the hospital. Did offer admission but patient has declined. We did discuss prescribed antibiotics steroids and albuterol inhaler for symptoms. She is to monitor her blood sugar very closely while being on the steroids. She does have a glucometer at home she just needs to find it. Patient is also counseled on smoking cessation. She reports that she really just brought her sister here to the emergency department is more concerned about her. Patient is to be rechecked in 24 to 48 hours. She is to return sooner if symptoms worsen. 98% on room air on my repeat evaluation. The patient is given strict emergency department return precautions and follow up information. They express a verbal understanding of my instructions. The patient is aware of any labs and imaging. All questions are answered and patient is stable at the time of discharge. I have spoken to the patient and/or caregivers. I have explained the patient's condition, diagnoses and treatment plan based on the information available to me at this time. I have answered the patient and/or caregiver's questions and addressed any concerns. The patient and/or caregiver has a good understanding of the patient's diagnosis, condition and treatment plan as can be expected at this point. The vital signs have been stable. The patient's condition is stable and appropriate for discharge from the emergency department. The patient will perfuse to further outpatient evaluation with primary care physician and/or other designated or consulting physicians as outlined in the discharge instructions. The patient and/or caregivers are agreeable to this plan and in the care follow-up instructions have been explained in detail. The patient and/or caregivers have received these instructions in written format and have expressed an understanding of the discharge instructions. The patient and/or caregivers are aware that any significant change in condition or worsening of symptoms should prompt an immediate return to this or the closest emergency department or a call to 911. Discharged to home Date: January 06, 2021. Kaylene Disclaimer: Kaylene Disclaimer: This electronic medical record was generated, in whole or in part, using a voice recognition dictation system. Departure Departure Impression: Primary Impression: Cough Additional Impression: Hyperglycemia Disposition: 01 HOME / SELF CARE / HOMELESS Condition: GOOD Referrals: Adriano JOVEL MD (PCP) Patient Instructions: Cough, Adult, Cough, Adult, Eooy-[id number], Hyperglycemia, Hyperglycemia, Gckd-zr-Gldi, Smoking Cessation, Smoking Cessation, Tips For Garcia ccess Additional Instructions: Follow-up with primary care provider in 24 to 48 hours. Please return to the emergency department for any other concerns or worsening symptoms. These monitor your blood sugar closely while taking steroids. Scripts Albuterol Sulfate (PROAIR HFA INHALER) 8.5 Gm Hfa.aer.ad 2 PUFF IH PRN Q4-6HRS PRN for wheezing for 21 Days, #1 INHALER 0 Refills Prov: BONNIE HERNANDEZ DO 01/06/21 Prednisone (PREDNISONE) 20 Mg Tablet 40 MG PO DAILY for 5 Days, #10 TAB Prov: BONNIE HERNANDEZ DO 01/06/21 Azithromycin (ZITHROMAX) 250 Mg Tablet 250 MG PO as directed for ANTI-BIOTIC, #6 TAB 0 Refills Take 2 PO x 1 days Then take 1 PO q 24 hour for the next 4 days Prov: BONNIE HERNANDEZ DO 01/06/21 BONNIE HERNANDEZ DO Jan 06, 2021 18:08
[2021-01-06 18:40] LABS: BASO # 0.1 x10^3/uL (0.0-0.2); BASO % 1 % (0-3); EOS # 0.2 x10^3/uL (0.0-0.7); EOS % 2 % (0-3); HEMOGLOBIN 13.7 g/dL (12.0-15.5); LYMPH % 22 % (24-48); MEAN CORPUSCULAR HEMOGLOBIN 28 pg (25-35); MEAN CORPUSCULAR HGB CONC 33 g/dL (31-37); MEAN CORPUSCULAR VOLUME 83 fL (79-100); MONO # 0.6 x10^3/uL (0.0-1.1); MONO % 7 % (0-9); NEUT # 6.1 x10^3/uL (1.8-7.7); NEUT % 68 % (31-73); PLATELET COUNT 148 x10^3/uL (140-400); RED BLOOD COUNT 4.95 x10^6/uL (3.50-5.40); RED CELL DISTRIBUTION WIDTH 15.9 % (11.5-14.5)
[2021-01-06 18:49] LABS: CALCIUM 9.2 mg/dL (8.5-10.1); CREATININE 0.8 mg/dL (0.6-1.0); GFR 88.8; POTASSIUM 3.8 mmol/L (3.5-5.1)
[2021-01-06 18:55] LABS: ALBUMIN 3.7 g/dL (3.4-5.0); TOTAL BILIRUBIN 0.3 mg/dL (0.2-1.0); TOTAL PROTEIN 7.4 g/dL (6.4-8.2)
--- NOTE | 2021-01-06 18:57 | RAD ---
XR CHEST 2V History: Reason: cough / Spl. Instructions: / History: Comparison: May 14, 2020 Findings: No consolidation or pleural effusion. Enlarged cardiac size, unchanged. No pneumothorax. Large hiatal hernia. Impression: 1. No acute cardiopulmonary process. 2. Large hiatal hernia. Electronically signed by: Mathew Natarajan DO (01/06/2021 6:55 PM) [facility]
[2021-01-06] MEDS ORDERED: ALBU2.5V8 IH (19:34)
[2021-01-06] MEDS ORDERED: AZIT250T PO (19:34)
[2021-01-06] MEDS ORDERED: PRED20TA PO (19:34)
[2021-01-06 19:35] VITALS: BP 152/80
[2021-01-06 19:42] LABS: PLT ESTIMATE ADEQUATE (ADEQUATE)
--- NOTE | 2021-01-07 00:46 | EKG ---
[facility] [address] [place] [address] Test Date: 2021-01-06 Test Time: 19:39:55 Pat Name: JACLYN SOTO Department: Room: Gender: F Oral Communication Instructor: : 1960 Requested By: BONNIE HERNANDEZ Order Number: [id number] Reading MD: Measurements Intervals [place] Rate: 94 P: 55 OK: 170 QRS: -11 QRSD: 68 T: 50 QT: 348 QTc: 441 Interpretive Statements SINUS RHYTHM LEFTWARD AXIS QRS(T) CONTOUR ABNORMALITY CONSISTENT WITH INFERIOR INFARCT PROBABLY OLD ABNORMAL ECG RI6.02 Compared to ECG 01/06/2021 18:21:58 No significant changes
--- NOTE | 2021-01-07 05:04 | EKG ---
[facility] [address] [place] [address] Test Date: 2021-01-06 Test Time: 18:21:58 Pat Name: JACLYN SOTO Department: Room: Gender: F Performance Instructor: VERO : 1960 Requested By: BONNIE HERNANDEZ Order Number: [id number] Reading MD: Measurements Intervals [place] Rate: 99 P: 56 ID: [id number] QRS: -15 QRSD: 74 T: 37 QT: 340 QTc: 436 Interpretive Statements SINUS RHYTHM LEFTWARD AXIS QRS(T) CONTOUR ABNORMALITY CONSISTENT WITH ANTEROSEPTAL INFARCT PROBABLY OLD CONSISTENT WITH INFERIOR INFARCT PROBABLY OLD ABNORMAL ECG RI6.02 No previous ECG available for comparison
== END 2021-01-06 19:54 | disposition home or self-care (01) ==
LOC: ER 14:14
DX: E11.65 Type 2 diabetes mellitus with hyperglycemia (principal); R05 Cough; R09.81 Nasal congestion; R11.2 Nausea with vomiting, unspecified; J44.9 Chronic obstructive pulmonary disease, unspecified; M19.90 Unspecified osteoarthritis, unspecified site; I10 Essential (primary) hypertension; F17.200 Nicotine dependence, unspecified, uncomplicated; E78.5 Hyperlipidemia, unspecified; Z86.2 Personal history of diseases of the blood and blood-forming organs and certain disorders involving the immune mechanism; Z86.73 Personal history of transient ischemic attack (TIA), and cerebral infarction without residual deficits; Z88.6 Allergy status to analgesic agent; Z88.8 Allergy status to other drugs, medicaments and biological substances; Z91.018 Allergy to other foods
CPT/HCPCS: 36415; 71046; 80053; 84484; 85025; 93005; 99285

== ENCOUNTER → 2021-03-24 | Outpatient (CLI) | payer OTHER, MEDICAID ==
[~2021-03-24] MED LIST changes: +ALBU2.5V8 IH; +PRED20TA PO
--- NOTE | 2021-03-25 18:34 | RAD ---
DATE: 03/24/2021 EXAM: MAMMO BORA SCREENING BILATERAL HISTORY: Screening COMPARISON: Multiple prior exams dating back to 2005 This study was interpreted with the benefit of Computerized Aided Detection (CAD). Breast Density: SCATTERED The breast parenchyma shows scattered fibroglandular densities. Breast parenchyma level B. FINDINGS: No mass, suspicious calcification, or architectural distortion in either breast. IMPRESSION: No evidence of malignancy. BI-RADS CATEGORY: 1 NEGATIVE RECOMMENDED FOLLOW-UP: 12M 12 MONTH FOLLOW-UP PQRS compliance statement: Patient information was entered into a reminder system with a target due date for the next mammogram. Mammography is a sensitive method for finding small breast cancers, but it does not detect them all and is not a substitute for careful clinical examination. A negative mammogram does not negate a clinically suspicious finding and should not result in delay in biopsying a clinically suspicious abnormality. "Our facility is accredited by the [employer] Mammography Program."
== END ==
LOC: MAMMO 13:45
PROVIDERS: ATTEND Family Medicine
DX: Z12.31 Encounter for screening mammogram for malignant neoplasm of breast (principal)
CPT/HCPCS: 77063; 77067